=== PATIENT | female | born 1960 | race Caucasian/White ===

== ENCOUNTER 2024-05-27 18:19 | Emergency (ER) | payer MEDICAID, OTHER ==
[~2024-05-27] VITALS: Ht 162.6 cm; Wt 90.9 kg
[2024-05-27 19:47] VITALS: PULSE 71; RESP 16; O2SAT 98
[2024-05-27 19:54] LABS: Basophils # (auto) 0.1 10 ^3/uL (0-0.2); Basophils % (auto) 0.6 % (0.0-2.0); Eosinophils # (auto) 0.6 10 ^3/uL (0-0.8); Eosinophils % (auto) 4.5 % (0.0-7.0); Hematocrit 45.8 % (36.0-46.0); Hemoglobin 15.8 g/dL (12.2-16.2); Lymphocytes # (auto) 2.7 10 ^3/uL (0.4-5.4); Lymphocytes % (auto) 21.7 % (10.0-50.0); Mean Corpuscular Hemoglobin 30.3 pg (28.0-32.0); Mean Corpuscular Hgb Conc. 34.6 g/dL (32.0-36.0); Mean Corpuscular Volume 87.6 fL (80.0-100.0); Monocytes # (auto) 0.9 10 ^3/uL (0-1.3); Monocytes % (auto) 7.1 % (0.0-12.0); Neutrophils # (auto) 8.4 10 ^3/uL (1.6-8.6); Neutrophils % (auto) 66.1 % (37.0-80.0); Platelet Count (auto) 193 10^3/uL (140-450); Red Blood Cells 5.23 10^6/uL (4.0-5.20); Red Cell Distribution Width 13.6 % (11.8-14.3); White Blood Cell 12.6 10^3/uL (4.4-10.8)
[2024-05-27 20:08] LABS: Anion Gap 4 (5-15); Calcium 10.1 mg/dL (8.7-10.4); Carbon Dioxide 29 mmol/L (20-31); Chloride 108 mmol/L (98-107); Potassium 4.3 mmol/L (3.5-5.1); Sodium 141 mmol/L (136-145)
[2024-05-27 20:13] LABS: Glucose 137 mg/dL (74-106)
[2024-05-27 20:14] LABS: BUN/Creatinine Ratio 13.6 (10.0-20.0); Blood Urea Nitrogen 14 mg/dL (9-23)
[2024-05-27 22:11] LABS: Urine Bacteria FEW /hpf (None Seen); Urine Blood Negative /uL (Negative); Urine Clarity Clear (Clear); Urine Color Yellow (Yellow); Urine Hyaline Cast FEW /lpf (0 - 2); Urine Mucus FEW (None Seen); Urine Protein, UAD 1+ (Negative); Urine Specific Gravity 1.033 (1.001-1.035); Urine Urobilinogen Normal (Negative); Urine WBC 5 /hpf (0 - 5); Urine pH 5.5 (5.0-9.0)
[2024-05-27] MEDS: SODIUM CHLORIDE 0.9% 1,000 ML IV ONE (22:45)
[2024-05-28 01:14] VITALS: BP 131/72; PULSE 70; RESP 13; TEMP 98.4; O2SAT 96
== END 2024-05-28 01:22 | disposition home or self-care (01) ==
LOC: EDBD 18:19 → ER 18:19
DX: E86.0 Dehydration (principal); R55 Syncope and collapse; R53.1 Weakness; J45.909 Unspecified asthma, uncomplicated; F32.9 Major depressive disorder, single episode, unspecified; Z98.890 Other specified postprocedural states
CPT/HCPCS: 36415; 70450; 71045; 80048; 81001; 83605; 84484; 85025; 93005

== ENCOUNTER 2024-06-01 10:25 | Emergency (ER) | payer OTHER ==
[2024-06-01 11:00] VITALS: BP 135/76; PULSE 84; O2SAT 94
[2024-06-01 12:00] LABS: Basophils # (auto) 0.1 10 ^3/uL (0-0.2); Basophils % (auto) 0.5 % (0.0-2.0); Eosinophils # (auto) 0.6 10 ^3/uL (0-0.8); Eosinophils % (auto) 5.9 % (0.0-7.0); Hematocrit 42.4 % (36.0-46.0); Hemoglobin 14.9 g/dL (12.2-16.2); Lymphocytes # (auto) 2.6 10 ^3/uL (0.4-5.4); Lymphocytes % (auto) 26.7 % (10.0-50.0); Mean Corpuscular Hemoglobin 30.8 pg (28.0-32.0); Mean Corpuscular Hgb Conc. 35.1 g/dL (32.0-36.0); Mean Corpuscular Volume 87.8 fL (80.0-100.0); Monocytes # (auto) 0.7 10 ^3/uL (0-1.3); Monocytes % (auto) 6.9 % (0.0-12.0); Neutrophils # (auto) 5.9 10 ^3/uL (1.6-8.6); Nucleated Red Blood Cells % 0.1 %; Platelet Count (auto) 178 10^3/uL (140-450); Red Blood Cells 4.83 10^6/uL (4.0-5.20); Red Cell Distribution Width 13.6 % (11.8-14.3); White Blood Cell 9.8 10^3/uL (4.4-10.8)
[2024-06-01] MEDS: SODIUM CHLORIDE 0.9% 1,000 ML IV ONE (12:00)
[2024-06-01 12:18] LABS: Alanine Aminotransferase 31 U/L (7-40); Albumin 4.3 g/dL (3.2-4.8); Alkaline Phosphatase 143 U/L (46-116); Anion Gap 6 (5-15); Aspartate Aminotransferase 19 U/L (13-40); Blood Urea Nitrogen 10 mg/dL (9-23); Calcium 9.8 mg/dL (8.7-10.4); Carbon Dioxide 29 mmol/L (20-31); Chloride 106 mmol/L (98-107); Glucose 93 mg/dL (74-106); Potassium 3.8 mmol/L (3.5-5.1); Sodium 141 mmol/L (136-145)
[2024-06-01 12:19] LABS: Bilirubin, Total 0.8 mg/dL (0.2-1.0); Total Protein 6.9 g/dL (5.7-8.2)
[2024-06-01 19:22] LABS: Base Excess 0.1 mmol/L (-2.0-3.0)
[2024-06-01 19:29] LABS: Urine Bacteria None Seen /hpf (None Seen)
[2024-06-01 19:47] LABS: Urine Amorphous Crystal FEW /hpf (None Seen); Urine Blood Negative /uL (Negative); Urine Clarity Ex.Turbid (Clear); Urine Color Light-Orange (Yellow); Urine Mucus FEW (None Seen); Urine Protein, UAD Negative (Negative); Urine Specific Gravity 1.026 (1.001-1.035); Urine Urobilinogen Normal (Negative); Urine WBC 21 /hpf (0 - 5); Urine pH 5.5 (5.0-9.0)
[2024-06-01] MEDS: IOHEXOL 350 MG/ML 100ML IJ ONE (20:25)
[2024-06-01] MEDS: IPRATROPIUM BROM 0.5 MG/2.5ML INH SOL NEB ONE (21:26)
[2024-06-01] MEDS: ALBUTEROL SULF 2.5 MG/0.5ML(0.5%) NEB SOLN NEB ONE (21:26)
[2024-06-01 21:27] VITALS: PULSE 64; RESP 16; O2SAT 90
[2024-06-01] MEDS: methylPREDNISolone SOD SUCC 125 MG/2 ML VL IV ONE (21:38)
[2024-06-02 03:27] VITALS: RESP 18
[2024-06-02 03:31] LABS: COVID19 ANTIGEN SOFIA FIA NEGATIVE (NEGATIVE)
== END 2024-06-02 07:28 | disposition home or self-care (01) ==
LOC: EDBD 10:25 → ER 10:25
DX: R55 Syncope and collapse (principal); J45.901 Unspecified asthma with (acute) exacerbation; F32.A Depression, unspecified; Z90.49 Acquired absence of other specified parts of digestive tract; Z90.710 Acquired absence of both cervix and uterus
CPT/HCPCS: 36415; 36600; 70450; 71045; 71275; 80053; 81001; 82805; 83880; 84484; 85025; 87426; 93005; 94640; 96361; 96374; 99285; J2919; J7030; Q9967